=== PATIENT | female | born 1940 | race Caucasian/White ===

== ENCOUNTER 2022-04-08 11:46 | Inpatient (IN) | payer OTHER ==
[~2022-04-08] VITALS: Ht 147.3 cm; Wt 60.8 kg
[2022-04-08 11:55] VITALS: BP 140/93
--- NOTE | 2022-04-08 12:10 | NUR ---
81 Y/O Female BIB family from clinic due to abnormal EKG finding. Pt is AOX4, able to make needs known. GCS 15. Denies CP/SOB/N/V/D. Pt gets around with wheelchair. Endorses feeling tired when she ambulates. pmhx: Pt is poor historian. Endorses heart condition and HTN. Allergies: Denies Home meds: Denies
--- NOTE | 2022-04-08 12:42 | NUR ---
IRINA specimen done and walked to lab
--- NOTE | 2022-04-08 12:43 | NUR ---
Lab at bedside for blood specimens
[2022-04-08 13:00] LABS: BASOPHILS % (AUTO) 0.4 % (0.0-2.0); EOSINOPHILS # (AUTO) 0.2 K/uL (0-0.4); EOSINOPHILS % (AUTO) 3.1 % (0.0-4.0); HEMATOCRIT 30.3 % (36-48); HEMOGLOBIN 10.1 g/dL (12.0-16.0); LYMPHOCYTES # (AUTO) 1.1 K/uL (2.5-16.5); LYMPHOCYTES % (AUTO) 19.9 % (20.5-51.1); MEAN CORPUSCULAR HEMOGLOBIN 28 pg (27-31); MEAN CORPUSCULAR HGB CONC 33 g/dL (33-37); MEAN CORPUSCULAR VOLUME 84.8 fL (80-94); MONOCYTES # (AUTO) 0.4 K/uL (0.8-1.0); MONOCYTES % (AUTO) 6.9 % (1.7-9.3); NEUTROPHILS # (AUTO) 3.7 K/uL (1.8-7.7); NEUTROPHILS % (AUTO) 69.7 % (42.2-75.2); PLATELET COUNT (AUTO) 158 K/uL (140-450); RED BLOOD CELL COUNT(AUTO) 3.57 MIL/uL (4.20-5.40); RED CELL DISTRIBUTION WIDTH 16.1 % (11.6-13.7); WHITE BLOOD COUNT (AUTO) 5.4 K/uL (4.8-10.8)
[2022-04-08 14:06] LABS: PROTHROMBIN TIME 12.5 secs (10.8-13.4)
[2022-04-08 14:07] LABS: ALBUMIN 3.6 g/dL (3.4-5.0); ANION GAP 14.1 (8-16); ASPARTATE AMINOTRANSFERASE 35 U/L (15-37); CARBON DIOXIDE 23.3 mmol/L (21-32); CHLORIDE 107 mmol/L (98-107); GLUCOSE 111 mg/dL (74-106); POTASSIUM 4.4 mmol/L (3.5-5.1); SODIUM SERUM 140 mmol/L (136-145); TOTAL BILIRUBIN 0.8 mg/dL (0.0-1.0); UREA NITROGEN, BLOOD 14 mg/dL (7-18)
--- NOTE | 2022-04-08 14:25 | NUR ---
Kaylie albert in [facility] - 04/08/22 at 1832 by ANNE-MARIE Lakeisha F/C attempts were previously made Deondre NIETO made aware.
--- NOTE | 2022-04-08 15:06 | NUR ---
RECEIVED CALL FROM PTS GRANDDAUGHTER, KIRK. INFORMED HER OF PENDING ADMISSION. REPORTS SHE DOES NOT TAKE ANY MEDS DAILY, ONLY TYLENOL FOR PAIN. MED REC UPATED.
--- NOTE | 2022-04-08 16:20 | NUR ---
Patient will be admitted to care of Dr Spence. Admited to Tele. Will go to room 112 B. Belongings list completed. Report to Elena KONG bedside.
--- NOTE | 2022-04-08 16:35 | NUR ---
RECIEVED PATIENT FROM ER.VITALS ARE STABLE.ON TELE MONITOR.ON ROOM AIR.143/95 BP,98 TEMPERATURE,100% O2 SAT.,PULSE RATE.ALL SAFETY MEASURES IN PLACE.WILL CONTINUE TO MONITOR.
--- NOTE | 2022-04-08 19:15 | NUR ---
REPORT GIVEN BY AM RN, PATIENT IS A NEW ADMIT FROM ER. PATIENT IS AWAKE, ALERT AND ORIENTED. DENIES PAIN. DENIES SHORTNESS OF BREATH. SKIN WARM AND DRY TO TOUCH. BED IN THE LOWEST AND LOCKED POSITION FOR SAFETY, CALL LIGHT IN REACH, INSTRUCTED TO CALL IF ASSISTANCE IS NEEDED, PT VERBALLY AGREED.
[2022-04-08 20:00] VITALS: BP 130/85
[2022-04-08] MEDS ORDERED: HYDROcodone/APAP 5/325 MG 1 TAB TAB PO PRN (21:55)
[2022-04-09] VITALS: BP 132/83
[2022-04-09] MEDS: MELATONIN 3 MG TAB PO PRN (00:17)
--- NOTE | 2022-04-09 00:17 | NUR ---
MEDICATED WITH SLEEP MEDICATION PER PATIENT'S REQUEST. CALL LIGHT REMAINS WITHIN REACH.
--- NOTE | 2022-04-09 02:07 | NUR ---
PATIENT IS ASLEEP. BREATHING EVEN AND UNLABORED.
[2022-04-09 04:00] VITALS: BP 135/91
--- NOTE | 2022-04-09 06:12 | NUR ---
PATIENT IS ASLEEP. ALL NEEDS ATTENDED TO. NO S/SX OF PAIN NOR DISCOMFORT. SAFETY PRECAUTIONS MAINTAINED DURING THE SHIFT, CALL LIGHT REMAINS WITHIN REACH.
[2022-04-09 07:29] LABS: BASOPHILS # (AUTO) 0.1 K/uL (0.00-0.22); BASOPHILS % (AUTO) 2.5 % (0.0-2.0); EOSINOPHILS # (AUTO) 0.2 K/uL (0-0.4); EOSINOPHILS % (AUTO) 3.2 % (0.0-4.0); HEMATOCRIT 29.2 % (36-48); HEMOGLOBIN 9.5 g/dL (12.0-16.0); LYMPHOCYTES # (AUTO) 1.1 K/uL (2.5-16.5); LYMPHOCYTES % (AUTO) 20.2 % (20.5-51.1); MEAN CORPUSCULAR HEMOGLOBIN 28 pg (27-31); MEAN CORPUSCULAR HGB CONC 33 g/dL (33-37); MEAN CORPUSCULAR VOLUME 84.7 fL (80-94); MONOCYTES # (AUTO) 0.3 K/uL (0.8-1.0); MONOCYTES % (AUTO) 6.1 % (1.7-9.3); NEUTROPHILS # (AUTO) 3.7 K/uL (1.8-7.7); PLATELET COUNT (AUTO) 156 K/uL (140-450); RED BLOOD CELL COUNT(AUTO) 3.45 MIL/uL (4.20-5.40); RED CELL DISTRIBUTION WIDTH 16.5 % (11.6-13.7); WHITE BLOOD COUNT (AUTO) 5.5 K/uL (4.8-10.8)
--- NOTE | 2022-04-09 07:33 | NUR ---
RECIEVED PATIENT FROM STRATEGY MANAGER NURSE.PATIENT IS SLEEPING,CHEST RISING AND FALLING UNEVEN.NO SIGNS OF DISTRESS NOTED.ALL SAFETY MEASURES IN PLACE.WILL CONTINUE TO MONITOR.
[2022-04-09 07:58] LABS: ANION GAP 13.5 (8-16); CARBON DIOXIDE 25.7 mmol/L (21-32); CHLORIDE 107 mmol/L (98-107); CREATININE 1.1 mg/dL (0.6-1.3); GLUCOSE 103 mg/dL (74-106); POTASSIUM 4.2 mmol/L (3.5-5.1); SODIUM SERUM 142 mmol/L (136-145); UREA NITROGEN, BLOOD 16 mg/dL (7-18)
[2022-04-09 08:00] VITALS: BP 159/94
--- NOTE | 2022-04-09 08:49 | NUR ---
PATIENT HAS BEEN SCREENED AND CATEGORIZED MODERATE NUTRITION RISK. PATIENT WILL BE SEEN WITHIN 3-5 DAYS OF ADMISSION. REVIEWED BY CECY MARI RD
[2022-04-09] MEDS ORDERED: POTASSIUM CHLORIDE 10 MEQ TABER PO PRN (09:15)
[2022-04-09] MEDS ORDERED: NITROGLYCERIN 0.4 MG TAB SL PRN (09:15)
[2022-04-09] MEDS ORDERED: HYDROcodone/APAP 7.5/325 MG 1 TAB PO PRN (09:15)
[2022-04-09] MEDS ORDERED: ONDANSETRON 4 MG/2 ML VIAL IVP PRN (09:15)
[2022-04-09] MEDS ORDERED: ACETAMINOPHEN 325 MG TAB PO PRN (09:15)
[2022-04-09 12:00] VITALS: BP 135/78
[2022-04-09 12:13] LABS: PROTHROMBIN TIME 12.9 secs (10.8-13.4)
[2022-04-09 12:23] LABS: CHOL/HDL RATIO 2.5 (1-4.5); FREE T4 (FREE THYROXINE) 1.17 ng/dL (0.76-1.46); MAGNESIUM 1.1 mg/dL (1.8-2.4); PHOSPHORUS 3.1 mg/dL (2.5-4.9); THYROID STIMULATING HORMONE 3.78 uIU/mL (0.34-3.74)
[2022-04-09] MEDS: MAG SULF 2000 MG/WATER PREMIX 50 ML IV PRN (14:04)
--- NOTE | 2022-04-09 14:48 | NUR ---
DC PLANNING PT BEING SEEN BY NURSE AND REQUESTED RICK CALL HER GRANDDAUGHTER, KIRK. PT IS AN 81 YR OLD FEMALE ADMITTED TO [facility] FROM HOME FOR DX OF CHEST PAIN. PT HAS PAST MEDICAL HX OF OF HYPERTENSION AND CAD. RICK OUTREACHED TO KIRK TO GATHER COLAT INFO. KIRK REPORTS PT RESIDES IN A SINGLE STORY HOME WITH HER GRANDDAUGHTER, AT THE ADDRESS LISTED ON FILE. KIRK IDENTIFIED HERSELF, EC AND DECLINED TO ADD ADDITIONAL EC. KIRK REPORTS HER MOTHER WAS PT'S DPOA HOWEVER, RECENTLY . KIRK ACCEPTED AD OFFERED BY RICK. KIRK REPORTS PATIENT RECENTLY BROUGHT TO MOVE BACK TO THE [facility] FROM [place] ABOUT 4-5 MONTHS AGO. KIRK REPORTS RECENTLY GETTING AL OF PT'S MEDICAL AFFAIRS IN ORDER, PT MEETING WITH PHYSICIAN AT [facility], LAST VISIT . KIRK REPORTS SHE WAS ADVISED TO BRING PT TO ED DIRECTLY FROM PHYSICIANS OFFICE. PT UTILIZES FWW AND REQUIRES STANDBY ASSISTANCE WITH ADL'S. KIRK REPORTS PT WAS RECEIVING HH-PT , 2 MONTHS AGO FOR THREE MONTHS WITH [facility] . KIRK REPORTS [facility]DEQUATE FAMILY SUPPORT. KIRK REPORTS DC PLAN IS FOR PT TO RETURN HOME, WHEN MEDICALLY STABLE. KIRK REPORTS SHE WILL PICKUP PT ONCE CLEARED FOR DC. ADV LEFT AT BEDSIDE FOR FAMILY. Addendum: 04/09/22 at 1450 by Kala CARROLL Amended: Links added.
[2022-04-09] MEDS ORDERED: MAG SULF 2000 MG/WATER PREMIX 50 ML IV SCH (15:59)
[2022-04-09 16:00] VITALS: BP 135/78
[2022-04-09] MEDS ORDERED: FUROSEMIDE 40 MG/4 ML VIAL IVP SCH (16:00)
[2022-04-09 16:19] LABS: APPEARANCE,URINE CLEAR (CLEAR); BILIRUBIN,URINE SMALL (NEGATIVE); BLOOD, URINE NEGATIVE (NEGATIVE); COLOR,URINE ORANGE (YELLOW); LEUKOCYTE ESTERASE ,URINE NEGATIVE (NEGATIVE); NITRITE, URINE NEGATIVE (NEGATIVE); UGLUCOSE NEGATIVE (NEGATIVE)
[2022-04-09 16:28] LABS: BARBITURATE, URINE NEGATIVE ng/ml (NEG <=200); BENZODIAZEPINE, URINE NEGATIVE ng/mL (NEG <=200); CANNABINOID, URINE NEGATIVE ng/mL (NEG <=50); COCAINE, URINE NEGATIVE ng/mL (NEG <=300); PHENCYCLIDINE SCREEN,URINE NEGATIVE ng/mL (NEG <=25); RBC,URINE 0-5 /HPF (0-5); WBC,URINE 0-5 /HPF (0-5)
[2022-04-09 16:29] LABS: OPIATE, URINE POSITIVE ng/mL (NEG <=2000)
--- NOTE | 2022-04-09 17:07 | NUR ---
FREQUENT ROUNDS DONE.PER GRAND DAUGHTERS REQUEST I LET PATIENT CALL HER THROUGH PHONE AT BEDSIDE.NO OTHER DISTRESS NOTED.ECHO DOING AT BEDSIDE.ALL SAFETY MEASURES AT BEDSIDE.WILL CONTINUE TO MONITOR.
--- NOTE | 2022-04-09 19:30 | NUR ---
RECEIVED PT IN BED, AWAKE, ALERT AND ORIENTED X 4. GRAND DAUGHTER AT THE BEDSIDE. DENIES PAIN. DENIES SHORTNESS OF BREATH. SKIN WARM AND DRY TO TOUCH. SAFETY PRECAUTION IN PLACE, CALL LIGHT IN REACH.
[2022-04-09 20:00] VITALS: BP 124/82
--- NOTE | 2022-04-09 20:00 | NUR ---
IV INSERTED IN THE RIGHT WRIST GAUGE 22 X1 ATTEMPT. PT TOLERATED WELL.
[2022-04-09] MEDS: DOCUSATE SODIUM 100 MG GELCAP PO SCH (20:40)
[2022-04-09] MEDS: ATORVASTATIN 20 MG TAB PO SCH (20:41)
[2022-04-09] MEDS ORDERED: METOPROLOL 25 MG TAB PO SCH (21:00)
--- NOTE | 2022-04-09 23:05 | NUR ---
PROVIDED WARM BLANKET. MADE COMFORTABLE IN BED.
[2022-04-10] VITALS: BP 115/67
[2022-04-10 04:00] VITALS: BP 132/72
[2022-04-10 05:40] LABS: BASOPHILS % (AUTO) 0.2 % (0.0-2.0); EOSINOPHILS # (AUTO) 0.2 K/uL (0-0.4); EOSINOPHILS % (AUTO) 3.3 % (0.0-4.0); HEMATOCRIT 29.7 % (36-48); HEMOGLOBIN 9.8 g/dL (12.0-16.0); LYMPHOCYTES # (AUTO) 1.2 K/uL (2.5-16.5); LYMPHOCYTES % (AUTO) 20.5 % (20.5-51.1); MEAN CORPUSCULAR HEMOGLOBIN 28 pg (27-31); MEAN CORPUSCULAR HGB CONC 33 g/dL (33-37); MEAN CORPUSCULAR VOLUME 83.4 fL (80-94); MONOCYTES # (AUTO) 0.5 K/uL (0.8-1.0); MONOCYTES % (AUTO) 7.9 % (1.7-9.3); NEUTROPHILS # (AUTO) 3.9 K/uL (1.8-7.7); NEUTROPHILS % (AUTO) 68.1 % (42.2-75.2); PLATELET COUNT (AUTO) 168 K/uL (140-450); RED BLOOD CELL COUNT(AUTO) 3.56 MIL/uL (4.20-5.40); RED CELL DISTRIBUTION WIDTH 16.6 % (11.6-13.7); WHITE BLOOD COUNT (AUTO) 5.8 K/uL (4.8-10.8)
[2022-04-10 06:04] LABS: ANION GAP 12.5 (8-16); CARBON DIOXIDE 27.1 mmol/L (21-32); CHLORIDE 104 mmol/L (98-107); GLUCOSE 111 mg/dL (74-106); POTASSIUM 3.6 mmol/L (3.5-5.1); SODIUM SERUM 140 mmol/L (136-145); UREA NITROGEN, BLOOD 17 mg/dL (7-18)
[2022-04-10 06:15] LABS: MAGNESIUM 1.7 mg/dL (1.8-2.4)
--- NOTE | 2022-04-10 06:21 | NUR ---
PATIENT IS ASLEEP. NO DISTRESS NOTED. ALL NEEDS ATTENDED TO. SAFETY PRECAUTIONS MAINTAINED DURING THE SHIFT, CALL LIGHT REMAINS WITHIN REACH.
--- NOTE | 2022-04-10 07:30 | NUR ---
RECEIVED PATIENT REPORT FROM DECORATING KILN OPERATOR NURSE FOR CONTINUITY OF CARE. PT IS AOX4, ON ROOM AIR AND NO DISTRESS NOTED. IV SITE ON RIGHT WRIST 22G SALINE LOCKED. SKIN INTACT AND PT IS AMBULATORY. DENIES PAIN AT THE MOMENT. PLAN OF CARE DISCUSSED. SAFETY PRECAUTIONS IN PLACE. CALL LIGHT WITHIN REACH. WILL CONTINUE TO MONITOR.
[2022-04-10 08:00] VITALS: BP 117/72
[2022-04-10] MEDS ORDERED: ASPIRIN 81 MG TAB.CHEW PO SCH (09:00)
[2022-04-10] MEDS: METOPROLOL 25 MG TAB PO SCH ×2 (09:00→20:16)
[2022-04-10] MEDS: DOCUSATE SODIUM 100 MG GELCAP PO SCH ×2 (09:00→20:16)
[2022-04-10] MEDS: lisinopriL 5 MG TAB PO SCH (09:21)
[2022-04-10] MEDS: PANTOPRAZOLE 40 MG INJ VIAL IVP SCH (09:21)
[2022-04-10] MEDS: FUROSEMIDE 40 MG/4 ML VIAL IVP SCH (09:21)
[2022-04-10] MEDS: APIXABAN 2.5 MG TAB PO SCH ×2 (09:23→20:18)
--- NOTE | 2022-04-10 09:30 | NUR ---
ALL SCHEDULED MEDS GIVEN. PT IS STABLE. NO DISTRESS NOTED. WILL CONTINUE TO MONITOR.
[2022-04-10 12:00] VITALS: BP 116/90
--- NOTE | 2022-04-10 12:30 | NUR ---
CHECKED ON PATIENT. PT IS STABLE. NO DISTRESS NOTED. WILL CONTINUE TO MONITOR.
[2022-04-10 16:00] VITALS: BP 122/57
--- NOTE | 2022-04-10 16:45 | NUR ---
CHECKED ON PATIENT. PT IS STABLE. NO DISTRESS NOTED. WILL CONTINUE TO MONITOR.
--- NOTE | 2022-04-10 19:24 | NUR ---
ENDORSED TO SECOND BAKER NURSE FOR CONTINUITY OF CARE. PT IS STABLE.
--- NOTE | 2022-04-10 19:25 | NUR ---
RECEIVED REPORT FROM MORNING SHIFT NURSE. PT IS AOX4, AMBULATORY, ARGENTINE SPEAKING, ABLE TO VERBALIZE NEEDS AND ABLE TO FOLLOW COMMANDS. PT IS ON ROOM AIR AND ON CARDIAC DIET. PT HAS IV ON RIGHT WRIST 22, SALINE LOCK. PT SKIN IS INTACT. ALL SAFETY MEASURES IMPLEMENTED. BED IN LOW POSITION, BED WHEELS ON LOCK AND CALL LIGHT WITHIN REACH.
[2022-04-10 20:00] VITALS: BP 117/69
[2022-04-10] MEDS: ATORVASTATIN 20 MG TAB PO SCH (20:16)
--- NOTE | 2022-04-10 20:18 | NUR ---
ALL SCHEDULED AND PRESCRIBED MEDICATION WAS GIVEN TO PT PER MD ORDER. ALL SAFETY MEASURES IMPLEMENTED. BED IN LOW POSITION, BED WHEELS ON LOCK AND CALL LIGHT WITHIN REACH.
[2022-04-10] MEDS: MELATONIN 3 MG TAB PO PRN (23:00)
--- NOTE | 2022-04-10 23:00 | NUR ---
PT WAS GIVEN PRN SLEEPING MEDICATION PER PT REQUEST. ALL SAFETY MEASURES IMPLEMENTED. BED IN LOW POSITION, BED WHEELS ON LOCK, BED IN LOW POSITION AND CALL LIGHT WITHIN REACH.
[2022-04-11] VITALS: BP 118/74
--- NOTE | 2022-04-11 02:00 | NUR ---
PT IS SLEEPING. CHEST RISE AND FALL SYMMETRICALLY NOTED. RESPIRATION IS EVEN AND UNLABORED. ALL SAFETY MEASURES IMPLEMENTED. BED IN LOW POSITION, BED WHEELS ON LOCK, BED IN LOW POSITION AND CALL LIGHT WITHIN REACH.
[2022-04-11 04:00] VITALS: BP 111/65
--- NOTE | 2022-04-11 04:00 | NUR ---
CHECKED PT STILL SLEEPING. CHEST RISE AND FALL SYMMETRICALLY NOTED. RESPIRATION IS EVEN AND UNLABORED. ALL SAFETY MEASURES IMPLEMENTED. BED IN LOW POSITION, BED WHEELS ON LOCK, BED IN LOW POSITION AND CALL LIGHT WITHIN REACH.
[2022-04-11 06:35] LABS: BASOPHILS # (AUTO) 0.1 K/uL (0.00-0.22); BASOPHILS % (AUTO) 0.9 % (0.0-2.0); EOSINOPHILS # (AUTO) 0.4 K/uL (0-0.4); EOSINOPHILS % (AUTO) 6.7 % (0.0-4.0); HEMATOCRIT 32.2 % (36-48); HEMOGLOBIN 10.5 g/dL (12.0-16.0); LYMPHOCYTES # (AUTO) 1.2 K/uL (2.5-16.5); LYMPHOCYTES % (AUTO) 19.2 % (20.5-51.1); MEAN CORPUSCULAR HEMOGLOBIN 27 pg (27-31); MEAN CORPUSCULAR HGB CONC 33 g/dL (33-37); MEAN CORPUSCULAR VOLUME 83.7 fL (80-94); MONOCYTES # (AUTO) 0.7 K/uL (0.8-1.0); MONOCYTES % (AUTO) 11.6 % (1.7-9.3); NEUTROPHILS # (AUTO) 3.9 K/uL (1.8-7.7); NEUTROPHILS % (AUTO) 61.6 % (42.2-75.2); PLATELET COUNT (AUTO) 168 K/uL (140-450); RED BLOOD CELL COUNT(AUTO) 3.85 MIL/uL (4.20-5.40); RED CELL DISTRIBUTION WIDTH 16.2 % (11.6-13.7); WHITE BLOOD COUNT (AUTO) 6.3 K/uL (4.8-10.8)
[2022-04-11 07:05] LABS: ANION GAP 9.1 (8-16); CARBON DIOXIDE 32.2 mmol/L (21-32); CHLORIDE 102 mmol/L (98-107); GLUCOSE 111 mg/dL (74-106); POTASSIUM 3.3 mmol/L (3.5-5.1); SODIUM SERUM 140 mmol/L (136-145); UREA NITROGEN, BLOOD 18 mg/dL (7-18)
[2022-04-11 07:07] LABS: MAGNESIUM 1.4 mg/dL (1.8-2.4); PHOSPHORUS 2.7 mg/dL (2.5-4.9)
--- NOTE | 2022-04-11 07:15 | NUR ---
PT IS STABLE. ENDORSED PT TO MORNING SHIFT NURSE FOR CONTINUITY OF CARE.
[2022-04-11 08:00] VITALS: BP 122/71
[2022-04-11] MEDS: FUROSEMIDE 40 MG/4 ML VIAL IVP SCH (09:17)
[2022-04-11] MEDS: PANTOPRAZOLE 40 MG INJ VIAL IVP SCH (09:18)
[2022-04-11] MEDS: MAG SULF 2000 MG/WATER PREMIX 50 ML IV PRN (09:23)
[2022-04-11] MEDS: lisinopriL 5 MG TAB PO SCH (09:42)
[2022-04-11] MEDS: METOPROLOL 25 MG TAB PO SCH ×2 (09:42→20:10)
[2022-04-11] MEDS: DOCUSATE SODIUM 100 MG GELCAP PO SCH ×2 (09:42→20:16)
[2022-04-11] MEDS: APIXABAN 2.5 MG TAB PO SCH ×2 (09:44→20:11)
[2022-04-11 12:00] VITALS: BP 109/54
[2022-04-11 16:00] VITALS: BP 102/61
--- NOTE | 2022-04-11 19:09 | NUR ---
ENDORSE PATIENT IN STABLE CONDITION TO PM SHIFT NURSE AFTER CORRECT MAGNESIUM=1.4 W/ 4GM MAG-RIDER & POTASSIUM=3.3 W/ 40 MEQ K-DUR
--- NOTE | 2022-04-11 19:10 | NUR ---
RECEIVED REPORT FROM MORNING SHIFT NURSE. PT IS AOX4, AMBULATORY, CYMRO SPEAKING, ABLE TO VERBALIZE NEEDS AND ABLE TO FOLLOW COMMANDS. PT IS ON ROOM AIR AND ON CARDIAC DIET. PT HAS IV ON RIGHT WRIST 22, SALINE LOCK. PT SKIN IS INTACT. NO COMPLAIN OF PAIN. NO S/S OF RESPIRATORY DISTRESS. ALL SAFETY MEASURES IMPLEMENTED. BED IN LOW POSITION, BED WHEELS ON LOCK AND CALL LIGHT WITHIN REACH.
[2022-04-11 20:00] VITALS: BP 107/63
[2022-04-11] MEDS: ATORVASTATIN 20 MG TAB PO SCH (20:10)
--- NOTE | 2022-04-11 20:11 | NUR ---
ALL SCHEDULED AND PRESCRIBED MEDICATION WAS GIVEN TO PT PER MD ORDER. PT REFUSED COLACE TO TAKE DUE TO SHE POOP REGULARLY. ALL SAFETY MEASURES IMPLEMENTED. BED IN LOW POSITION, BED WHEELS ON LOCK AND CALL LIGHT WITHIN REACH.
--- NOTE | 2022-04-11 22:00 | NUR ---
ASSISTED PT TO OPERATE THE TELEVISION. PT DENIES PAIN AT THIS TIME. NO S/S OF RESPIRATION DISTRESS NOTED. ALL SAFETY MEASURES IMPLEMENTED. BED IN LOW POSITION, BED WHEELS ON LOCK AND CALL LIGHT WITHIN REACH.
[2022-04-12] VITALS: BP 101/64
--- NOTE | 2022-04-12 | NUR ---
PT IS SLEEPING. CHEST RISE AND FALL SYMMETRICALLY NOTED. RESPIRATION IS EVEN AND UNLABORED. ALL SAFETY MEASURES IMPLEMENTED. BED IN LOW POSITION, BED WHEELS ON LOCK AND CALL LIGHT WITHIN REACH.
--- NOTE | 2022-04-12 02:00 | NUR ---
CHECKED PT STILL SLEEPING. CHEST RISE AND FALL SYMMETRICALLY NOTED. RESPIRATION IS EVEN AND UNLABORED. ALL SAFETY MEASURES IMPLEMENTED. BED IN LOW POSITION, BED WHEELS ON LOCK AND CALL LIGHT WITHIN REACH.
[2022-04-12 04:00] VITALS: BP 110/53
--- NOTE | 2022-04-12 04:00 | NUR ---
WARM BLANKET WAS GIVEN TO PT PER PT REQUEST. NO S/S OF RESPIRATORY DISTRESS. NO COMPLAIN OF PAIN AT THIS TIME. ALL SAFETY MEASURES IMPLEMENTED. BED IN LOW POSITION, BED WHEELS ON LOCK AND CALL LIGHT WITHIN REACH.
--- NOTE | 2022-04-12 07:02 | NUR ---
PT IS STABLE. ENDORSED PT TO MORNING SHIFT NURSE FOR CONTINUITY OF CARE.
[2022-04-12 07:15] LABS: ANION GAP 10.7 (8-16); CARBON DIOXIDE 31.3 mmol/L (21-32); CHLORIDE 101 mmol/L (98-107); CREATININE 1.1 mg/dL (0.6-1.3); GLUCOSE 114 mg/dL (74-106); SODIUM SERUM 139 mmol/L (136-145); UREA NITROGEN, BLOOD 16 mg/dL (7-18)
[2022-04-12 07:16] LABS: BASOPHILS # (AUTO) 0.2 K/uL (0.00-0.22); BASOPHILS % (AUTO) 2.6 % (0.0-2.0); EOSINOPHILS # (AUTO) 0.7 K/uL (0-0.4); EOSINOPHILS % (AUTO) 9.1 % (0.0-4.0); HEMATOCRIT 33.7 % (36-48); HEMOGLOBIN 11.2 g/dL (12.0-16.0); LYMPHOCYTES # (AUTO) 1.4 K/uL (2.5-16.5); LYMPHOCYTES % (AUTO) 19.4 % (20.5-51.1); MEAN CORPUSCULAR HEMOGLOBIN 28 pg (27-31); MEAN CORPUSCULAR HGB CONC 33 g/dL (33-37); MEAN CORPUSCULAR VOLUME 83.7 fL (80-94); MONOCYTES # (AUTO) 0.7 K/uL (0.8-1.0); MONOCYTES % (AUTO) 9.3 % (1.7-9.3); NEUTROPHILS # (AUTO) 4.5 K/uL (1.8-7.7); NEUTROPHILS % (AUTO) 59.6 % (42.2-75.2); PLATELET COUNT (AUTO) 199 K/uL (140-450); RED BLOOD CELL COUNT(AUTO) 4.02 MIL/uL (4.20-5.40); RED CELL DISTRIBUTION WIDTH 16.5 % (11.6-13.7); WHITE BLOOD COUNT (AUTO) 7.5 K/uL (4.8-10.8)
[2022-04-12 07:29] LABS: MAGNESIUM 1.8 mg/dL (1.8-2.4); PHOSPHORUS 3.3 mg/dL (2.5-4.9)
[2022-04-12 08:00] VITALS: BP 95/56
[2022-04-12] MEDS: lisinopriL 5 MG TAB PO SCH (09:00)
[2022-04-12] MEDS: FUROSEMIDE 40 MG/4 ML VIAL IVP SCH (09:00)
[2022-04-12] MEDS ORDERED: METO25TA PO (09:25)
[2022-04-12] MEDS ORDERED: LISI5TAB18 PO (09:25)
[2022-04-12] MEDS ORDERED: APIX5TAB PO (09:25)
[2022-04-12] MEDS: PANTOPRAZOLE 40 MG INJ VIAL IVP SCH (10:36)
[2022-04-12] MEDS: DOCUSATE SODIUM 100 MG GELCAP PO SCH (10:36)
[2022-04-12] MEDS: APIXABAN 2.5 MG TAB PO SCH (10:38)
[2022-04-12] MEDS: METOPROLOL 25 MG TAB PO SCH (10:41)
[2022-04-12 11:18] VITALS: BP 95/56
--- NOTE | 2022-04-12 11:48 | NUR ---
DISCHARGE PATIENT IN STABLE CONDITION HOME ACCORDING TO PCP ORDER. DISCHARGE INSTRUCTION GIVEN, DISCHARGE CONSENT SIGNED. PATIENT REMOVED IV ACCESS. NURSE REMOVE TEL. MONITOR & WRIST BAND.
== END 2022-04-12 13:24 | disposition home or self-care (01) | DRG 291 ==
LOC: MED 11:46 → MTU 15:20
DX: I11.0 Hypertensive heart disease with heart failure (principal); I50.43 Acute on chronic combined systolic (congestive) and diastolic (congestive) heart failure; I48.91 Unspecified atrial fibrillation; I25.10 Atherosclerotic heart disease of native coronary artery without angina pectoris; I44.7 Left bundle-branch block, unspecified; D64.9 Anemia, unspecified; Z20.822 Contact with and (suspected) exposure to COVID-19; E83.42 Hypomagnesemia; I42.9 Cardiomyopathy, unspecified; C50.912 Malignant neoplasm of unspecified site of left female breast
CPT/HCPCS: 36415; 71045; 80048; 80053; 80305; 81001; 82140; 82150; 83036; 83605; 83690; 83735; 83880; 84100; 84439; 84443; 84484; 85025; 85610; 85730; 87040; 87081; 93005; 99291; C9113; J1644; J1940; J3475; Q0092